=== PATIENT | female | born 1975 | race African-American/Black ===

== ENCOUNTER 2018-02-12 13:31 | Outpatient (CLI) | payer OTHER | END 2018-02-12 13:32 | disposition home or self-care (01) | LOC: BICMAMMO 13:31 | PROVIDERS: ATTEND Physician Assistant | DX: N63.10 Unspecified lump in the right breast, unspecified quadrant (principal) | CPT/HCPCS: 77066; G0279 ==

== ENCOUNTER 2018-08-26 13:35 | Outpatient (CLI) | payer OTHER ==
--- NOTE | 2018-08-26 16:22 | ULT ---
PELVIC ULTRASOUND: 08/26/18 HISTORY: Metromenorrhagia. Pelvic pain. TECHNIQUE: Multiplanar roberts scale and color doppler images were obtained in a transabdominal and transvaginal pe lvic ultrasound. Spectral analysis of the doppler waveforms were performed. FINDINGS: The uterus is enlarged. There are multiple hypoechoic to isoechoic fibroids in the uterus measuring u p to 6.5 cm in size. There is an anechoic region in the mid portion of the uterus measuring 1.3 cm in size which likely represents a small cystic space within one of the fibroids. The endometrial stripe is normal in thickness measuring 4 mm. The right ovary could not be visualized. The left ovary is normal in size and appearance and demonstr ates normal internal flow. A small amount of free fluid is seen in the pelvis. IMPRESSION: Fibroid uterus. POS: [facility]
== END 2018-08-26 13:36 | disposition home or self-care (01) ==
LOC: BICULT 13:35
PROVIDERS: ATTEND Physician Assistant
DX: R10.30 Lower abdominal pain, unspecified (principal); D25.9 Leiomyoma of uterus, unspecified
CPT/HCPCS: 76856

== ENCOUNTER 2018-11-13 12:00 | Inpatient (IN) | payer OTHER ==
[2018-12-03 15:52] VITALS: BMI 43.6
--- NOTE | 2018-12-03 21:38 | HP ---
REASON FOR ADMISSION: Fibroids, dysmenorrhea, and menorrhagia. SCHEDULED PROCEDURES: Total laparoscopic hysterectomy with bilateral salpingectomy, possible bilateral oophorectomy, and possible cystoscopy. HISTORY OF PRESENT ILLNESS: The patient is a 43-year-old 3, para 3, who presents with fibroids, dysmenorrhea, and dysfunctional uterine bleeding. She has one fibroid that is up to 8 cm as well as an anterior lower uterine segment, one that is 3 cm. Endometrial biopsy was benign and Pap smear was benign. The patient desires definitive surgical management. She reports menses that lasts for 10 days and changing pads q.1 to 2 hours. BUSINESS PLANNING ANALYST HISTORY: As noted in the HPI. x3. PAST MEDICAL HISTORY: Significant for chronic hypertension. PAST SURGICAL HISTORY: C-sections and tubal ligation. ALLERGIES: NONE. MEDICATIONS: 1. Lisinopril-hydrochlorothiazide 20/12.5. 2. Meloxicam 15. 3. Norethindrone acetate 5 mg. SOCIAL HISTORY: Denies tobacco, alcohol, or IV drug abuse. FAMILY HISTORY: Noncontributory. REVIEW OF SYSTEMS: Noncontributory. PHYSICAL EXAMINATION: GENERAL: Obese, black female. VITAL SIGNS: 5 feet 4 inches, 262, BMI 45. Blood pressure 138/92, pulse 77, respirations 18. HEENT: Within normal limits. LUNGS: Clear to auscultation bilaterally. HEART: Regular rhythm. BREASTS: No masses bilaterally. ABDOMEN: Soft, nontender without rebound or guarding. She has a vertical midline skin incision from the umbilicus to the symphysis pubis. It is well-healed. GENITALIA: Vulva without lesions. Vagina without discharge. Cervix is nulliparous. Uterus is anteverted, irregular, approximately 12 week size. Adnexa, no masses bilaterally. EXTREMITIES: No clubbing, cyanosis, or edema. Pap was negative for HPV and no evidence of dysplasia. Endometrial biopsy was benign proliferative. Ultrasound revealed a uterus measuring 14 x 8 cm. Normal-appearing right and left adnexa. Fundal fibroid measuring 6.3 x 6.75 cm in greatest diameter. The posterior fibroid measuring 3.5 x 3.5 cm. IMPRESSION: Symptomatic fibroids with dysmenorrhea and menorrhagia, unresponsive to medical management. Desires definitive surgical management. PLAN: Discussed with the patient options. We will proceed with total laparoscopic hysterectomy with specimen retrieval with retrieval by an extracorporal morcellation with bilateral salpingectomy. We will perform oophorectomy if ovaries appear abnormal. May need to perform cystoscopy because of the patient's 3 previous C-sections. The patient understands the risks and benefits of procedure including bleeding, infection, injury to bowel, bladder, or ureter. We will administer appropriate antibiotic and DVT prophylaxis. Job ID: [id number]
[2018-12-04] MEDS ORDERED: Lidocaine 1% PF 5 ML VIAL ONE (10:17)
[2018-12-04] MEDS ORDERED: Ondansetron PF 4 MG/2 ML Vial ONE (10:17)
[2018-12-04] MEDS ORDERED: Rocuronium Bromide 10 MG/ML (10ML VIAL) ONE (10:17)
[2018-12-04] MEDS ORDERED: PROPOFOL 200 MG/20 ML VIAL ONE (10:17)
[2018-12-04] MEDS ORDERED: Glycopyrrolate 0.2 MG/ML 5 ML SYRINGE ONE (10:17)
[2018-12-04] MEDS ORDERED: Ketorolac Tromethamine 30 MG/ML VIAL ONE (10:17)
[2018-12-04] MEDS ORDERED: CeleCOXIB 100 MG CAP ONE (10:37)
[2018-12-04] MEDS ORDERED: Famotidine/PF 20 mg/2ml Vial ONE (10:37)
[2018-12-04] MEDS ORDERED: Gabapentin 300 MG CAP ONE (10:37)
[2018-12-04] MEDS ORDERED: Bupivacaine HCl 0.5%/Epinephrine 1:200,000/PF 30 ml Vial ONE (11:16)
[2018-12-04] MEDS ORDERED: Fentanyl 100 MCG/2 ML VIAL ONE ×2 (11:49→15:10)
[2018-12-04] MEDS ORDERED: Midazolam HCl 2 mg/2 ml Vial ONE (11:49)
[2018-12-04 14:18] LABS: Bilirubin Negative (Negative); Blood, Urine Large (Negative); Clarity TURBID (Clear); Glucose, Urine (Dipstick) Negative (Negative); Leukocyte Large (Negative); Nitrite Positive (Negative); Protein, Urine (Dipstick) 100 mg/dL (Neg-Trace); Specific Gravity, Urine 1.016 (1.002-1.036)
[2018-12-04 14:25] LABS: Bacteria/HPF Rare-Few HPF (None Seen); Hyaline Casts/LPF 7-10 HYALINE CAST LPF (0-3 Hyaline); Pathc Cast-AUWi Flag 1.49 (0-2.49); RBC/HPF GREATER THAN 50-TNTC HPF (0-3); Squamous Epithelial 0-3 HPF (0-3)
[2018-12-04] MEDS ORDERED: Morphine 4 MG/ML VIAL SLOW IVP PRN (14:54)
[2018-12-04] MEDS ORDERED: Promethazine HCl 25 MG/ML VIAL IM PRN (14:54)
[2018-12-04] MEDS ORDERED: Ondansetron PF 4 MG/2 ML Vial IVP PRN (14:54)
[2018-12-04] MEDS ORDERED: diphenhydrAMINE 25 MG CAP PO PRN (14:54)
[2018-12-04] MEDS ORDERED: Acetaminophen/Codeine 30-300mg Tablet PO PRN (14:54)
[2018-12-04] MEDS ORDERED: Bisacodyl 10 MG SUPP PR PRN (14:54)
[2018-12-04] MEDS ORDERED: Zolpidem Tartrate 5 MG TAB PO PRN (14:54)
[2018-12-04] MEDS ORDERED: Simethicone Chewable 80 MG TAB PO PRN (14:54)
[2018-12-04] MEDS ORDERED: Morphine 4 MG/ML VIAL ONE (15:26)
[2018-12-04] MEDS ORDERED: hydrALAZINE 20 MG/ML VIAL ONE (15:31)
[2018-12-04] MEDS ORDERED: Morphine 2 MG/ML SYRINGE ONE ×2 (15:42→16:15)
--- NOTE | 2018-12-04 17:00 | OP ---
DATE OF PROCEDURE: 12/04/2018 PREOPERATIVE DIAGNOSES: A 12-to 14-week size uterus with leiomyoma uteri, menorrhagia, and dysmenorrhea. POSTOPERATIVE DIAGNOSES: A 12-to 14-week size uterus with leiomyoma uteri, menorrhagia, and dysmenorrhea plus adhesions of anterior abdominal wall, omentum, and pelvis secondary to 3 previous sections. PROCEDURES PERFORMED: Total laparoscopic hysterectomy with bilateral salpingectomy, extracorporeal bag morcellation. ASSISTANTS: 1. Cheyanne Robertson MD. 2. Kalyani Vivar PA-C. ANESTHESIA: General endotracheal. MEDICATIONS: 2 g of Ancef preoperatively and redosed 6 hours later secondary to the patient's obesity. DRAINS: Palacios to gravity with cloudy urine noted at placement prior to the procedure, sent for UA with micro and culture. DVT prophylaxis, SCDs. OPERATIVE FINDINGS: 1. Approximately 14-week size uterus with multiple leiomyoma, one 3-cm anterior lower uterine segment and the second one was 7 to 8 cm of fundal left-sided. 2. Omental adhesions to the anterior abdominal wall from the level of the umbilicus down to the symphysis pubis, reduced. 3. Moderate adhesive disease at the level of the vesicouterine peritoneal fold, status post x3. 4. Hemostasis with nonbloody urine. COUNTS: Correct counts at the end of the procedure. DISPOSITION: To recovery Room in good condition. DESCRIPTION OF PROCEDURE: After obtaining appropriate informed consent, the patient was taken to the operating room, where general endotracheal anesthesia was achieved without difficulty. The patient was prepped and draped in the dorsal lithotomy position in Travis stirrups. Sliding speculum was placed in the vagina. Cervix was identified, grasped with a single-tooth tenaculum. Uterus sounded to 11 cm. NATHANIEL manipulator with 8 cm obturator and 3.5 cm vaginal excavator operator was placed without difficulty. Palacios catheter was placed. Cloudy urine was noted. This was drawn off sterilely and sent for culture and urinalysis with micro. Manager Commercial changed his gloves, turned attention to abdominal portion of procedure. 5 mL of Marcaine injected approximately 4 cm above the umbilicus secondary to findings at the bimanual exam after induction of anesthesia. A 12-mm skin incision made and Veress needle placed in abdominal cavity, insufflation was carried out with carbon dioxide for a maximum volume 3 L, pressure of 15 mmHg. A 12-mm trocar was introduced and findings as noted in the operative findings were noted. The omental adhesions were noted to come up to the level of the umbilicus and were not impinged on by the trocar. The right and left lateral da Sidra trocars were placed lateral to epigastric vessels and anesthesiology physician assistant port in the left upper quadrant. Monopolar lakeisha were used to take down the omentum anteriorly off the anterior abdominal wall with good hemostasis noted. After this was done, the skin incision at the trocar above the umbilicus was enlarged approximately 3 cm and cut down to the level of the fascia. Small Nico O was placed inside of the GelPOINT, GelPort was placed over it. [employer] retrieval bag was placed in the abdomen in the usual manner. The patient was placed in steep Trendelenburg position and da Sidra robot docked with monopolar scissors in the right hand and bipolar fenestrated forceps in the left. Large fundal fibroid was mobilized on the patient's left, status post midsegment salpingectomy was noted. The distal portion of the fallopian tube was coagulated across the mesosalpinx, excised and sent for pathologic analysis. The utero-ovarian ligament was coagulated and transected, although fibroids extending into the broad ligament distorted this somewhat on this side. Good hemostasis was noted. This was carried down to the level of the round, which was coagulated and transected and then brought down to the level just above the internal cervical os. Distortion of the left parametria was noted secondary to the patient's fibroid as well as edema. It was opened up, ureter identified, noted to be well lateral to the vessels. The level of the internal cervical os as well as the apex of the vagina was easily identified. The vesicouterine peritoneum was incised sharply and dissected off the lower uterine segment, cervix and upper vagina on the patient's left and this was carried over to the right. The bladder was easily identified throughout. No evidence of injury with dissection of the bladder off the cervix and upper vagina was noted. Skeletonization of the uterine vessels carried out on the left and these were coagulated. Attention was turned to the right, where the identical procedure was carried out. Because of the fibroid in the mid lower uterine segment anteriorly, distortion of the round ligament and broad ligament were noted on this side as well. The distal portion of fallopian tube was excised and removed. Then, the utero-ovarian, the broad, the round, and down to the level of the internal cervical os. Final dissection of the bladder off the cervix and upper vagina was carried out on the patient's right. Blood vessels on the patient's right were much more tortuous than on the left and these were coagulated and transected and the ureter noted to be lateral to the level of coagulation and transection. The vagina was entered anteriorly at 12 o'clock and sent from 12 o'clock to 3 o'clock and from 12 o'clock to 9 o'clock. Posteriorly, the uterus was lifted up with some difficulty because a large fibroid entered at 6 o'clock and sent from 6 o'clock to 9 o'clock and 6 o'clock to 3 o'clock. Specimen was amputated and then the retention balloon on the obturator for the NATHANIEL was taken down and the specimen was pulled off the NATHANIEL. The vagina had the obturator balloon from the cuff portion of the NATHANIEL placed into it to maintain pneumoperitoneum. Suction irrigation carried out. All pedicles rendered hemostatic and the vagina closed using a running continuous 0 PDS suture lock running from right to left and then back to right. Again, ureters were noted to be well lateral to the operative field and the bladder was noted to be away from the closure. Suction irrigation was carried out and good hemostasis noted. Tisseel was applied across all raw surfaces that had been coagulated and transected. The uterus was then pulled back into the pelvis and the retrieval bag pulled out off the pelvis. Stay sutures on the [employer] retrieval bag were cut and removed. The specimen was pulled into the bag and then the edges of the bag pulled out through the GelPOINT trocar. Undocking the da Sidra, removing the da Sidra instruments and then removing the GelPOINT exteriorizing the bag through many Nico O. For the next 45 to 50 minutes, morcellation extracorporeally in the retrieval bag applied. Medical retrieval bag was carried out using an 11 blade and Ladonna thyroid clamps, taking care to avoid trauma to the underlying viscera. Once the entire specimen was removed, the retrieval bag was removed. The admitting Nico O was removed. Inspection of the abdomen through the mini-Nico O holding the fascia, which was approximately 2.5 to 3 cm revealed no evidence of active bleeding and good hemostasis. The fascia was identified and closed using running continuous suture of 0 Vicryl. At this level, the skin reapproximated x4 using 4-0 Monocryl and Dermabond. Vagina was inspected and noted to be dry. Palacios catheter was noted to have urine that was consistent with that, which was present at the beginning of the case. The patient was awakened and extubated, taken to the Recovery Room in good condition. Job ID: [id number]
[2018-12-04] MEDS ORDERED: cloNIDine 0.1 MG TAB PO PRN (17:29)
[2018-12-04] MEDS: Sodium Chloride 0.9% 1,000 ML IV SCH (17:58)
[2018-12-04] MEDS: Acetaminophen 1,000 MG in Premix Bag 1 BAG IVPB SCH (17:58)
[2018-12-04] MEDS: Ketorolac Tromethamine 30 MG/ML VIAL IVP SCH (17:59)
[2018-12-04] MEDS ORDERED: CEFAZOLIN 2 GM in Premix Bag 1 BAG IVPB SCH (20:00)
[2018-12-04] MEDS: CEFAZOLIN 2 GM in Premix Bag 1 BAG IVPB SCH ×2 (20:43→21:00)
[2018-12-04] MEDS ORDERED: Gabapentin 300 MG CAP PO SCH (21:00)
[2018-12-05] MEDS: Ketorolac Tromethamine 30 MG/ML VIAL IVP SCH ×2 (00:50→06:21)
[2018-12-05] MEDS: Acetaminophen 1,000 MG in Premix Bag 1 BAG IVPB SCH ×2 (00:55→06:25)
[2018-12-05] MEDS: Sodium Chloride 0.9% 1,000 ML IV SCH ×2 (03:34→09:31)
[2018-12-05 08:07] LABS: Hemoglobin 11.5 g/dL (12.0-16.0); Mean Corpuscular HGB CONC 32.3 g/dL (32.0-36.0); Mean Corpuscular Hemoglobin 28.6 pg (27.0-31.0); Mean Corpuscular Volume 88.4 fL (78.0-98.0); Mean Platelet Volume 7.7 fL (7.4-10.4); Platelet Count 217 thou/uL (130-400); RBC Distribution Width 12.3 % (11.5-14.5); Red Blood Cell (RBC) Count 4.03 mill/uL (4.20-5.40); White Blood Cell (WBC) Count 7.7 thou/uL (4.8-10.8)
--- NOTE | 2018-12-05 08:41 | DIS ---
DATE OF ADMISSION: 12/04/2018 DATE OF DISCHARGE: 12/05/2018 SUMMARY OF HOSPITAL COURSE: The patient was admitted on 12/04 at approximately noon and underwent a total laparoscopic hysterectomy with bilateral salpingectomy for large fibroids, dysmenorrhea, menorrhagia, and pelvic pain. At placement of Palacios catheter prior to surgery, the patient was noted to have a pre-existing cloudy urine. Urinalysis was consistent with UTI. Urine culture initially was less than 10,000 colony-forming units, which was found to be unusual. However, the patient was noted to have a previous urine culture in July, it was positive for Proteus mirabilis and is suspected to be the etiology of the patient's current UTI. This was sensitive to all cephalosporins. The patient underwent the hysterectomy with an estimated blood loss of 150 mL. Postoperative hematocrit went from 39% to 35%. The patient underwent the total laparoscopic hysterectomy with extracorporeal morcellation with applied medical retrieval bag. Postoperatively, she had an unremarkable postoperative course with good urine output and good p.o. intake. PHYSICAL EXAMINATION: VITAL SIGNS: This morning are temperature of 97.6, pulse 72, respirations 20, and blood pressure 141/65. HEENT: Within normal limits. LUNGS: Clear to auscultation bilaterally. HEART: Regular rate and rhythm. ABDOMEN: Soft, nontender, and nondistended. Good bowel sounds. Incisions intact and dry. Perineum intact and dry. EXTREMITIES: Without clubbing, cyanosis, or edema. LABORATORY DATA: As noted above. PLAN: The patient will be discharged home after noon today when voiding. DISCHARGE MEDICATIONS: Include [place] and ibuprofen, which has already been set out. We will also send out Keflex 500 p.o. t.i.d. x5 days. FOLLOWUP: The patient will follow up with me at [facility] in 2 to 3 weeks. Pathology will be followed up at that time. Job ID: [id number]
[2018-12-05] MEDS ORDERED: Lisinopril/Hydrochlorothiazide 20 mg/12.5 mg Tablet PO SCH (09:00)
[2018-12-05] MEDS: Acetaminophen/Codeine 30-300mg Tablet PO PRN ×2 (09:29→13:37)
[2018-12-05 11:36] VITALS: TEMP 99.6
[2018-12-05 14:08] VITALS: BP 165/95
[2018-12-09] MEDS ORDERED: Ibuprofen 800 MG TAB PO SCH (22:00)
== END 2018-12-05 14:09 | disposition home or self-care (01) | DRG 742 ==
LOC: SURG A 12-04 09:46 → 3SE 12-04 16:16
PROVIDERS: ADMIT Obstetrics & Gynecology; ATTEND Obstetrics & Gynecology
PROC: 0UT9FZZ Resection of Uterus, Via Natural or Artificial Opening With Percutaneous Endoscopic Assistance (ICD-10-PCS; principal; 2018-12-04)
PROC: 0UT7FZZ Resection of Bilateral Fallopian Tubes, Via Natural or Artificial Opening With Percutaneous Endoscopic Assistance (ICD-10-PCS; 2018-12-04)
DX: D25.1 Intramural leiomyoma of uterus (principal); Z68.41 Body mass index [BMI] 40.0-44.9, adult; N39.0 Urinary tract infection, site not specified; N93.8 Other specified abnormal uterine and vaginal bleeding; E66.9 Obesity, unspecified; B96.4 Proteus (mirabilis) (morganii) as the cause of diseases classified elsewhere
CPT/HCPCS: 36415; 80048; 81001; 85027; 86850; 86900; 86901; 87086; 88307; 93005; 93010; J0131; J0360; J0670; J1885; J2250; J2270; J3010; Q9968; S0028

== ENCOUNTER 2018-12-03 00:17 | Outpatient (CLI) | payer OTHER ==
[2018-12-03 16:38] LABS: Hemoglobin 12.4 g/dL (12.0-16.0); Mean Corpuscular HGB CONC 31.9 g/dL (32.0-36.0); Mean Corpuscular Hemoglobin 28.2 pg (27.0-31.0); Mean Corpuscular Volume 88.4 fL (78.0-98.0); Mean Platelet Volume 7.7 fL (7.4-10.4); Platelet Count 271 thou/uL (130-400); RBC Distribution Width 12.7 % (11.5-14.5); Red Blood Cell (RBC) Count 4.42 mill/uL (4.20-5.40); White Blood Cell (WBC) Count 6.9 thou/uL (4.8-10.8)
[2018-12-03 16:54] LABS: Anion Gap 8 mmol/L (10-20); BUN (Urea Nitrogen) 10 mg/dL (7.0-18.7); Calc. Creatinine Clearance 0 mL/min (70-130); Calcium 8.9 mg/dL (7.8-10.44); Carbon Dioxide 27 mmol/L (22-29); Chloride 106 mmol/L (98-107); Estimated GFR-MDRD Greater than 90; Glucose 77 mg/dL (70-105); Potassium 3.8 mmol/L (3.5-5.1); Sodium 137 mmol/L (136-145)
--- NOTE | 2018-12-05 16:37 | EKG ---
Test Reason : Blood Pressure : / mmHG Vent. Rate : 068 BPM Atrial Rate : 068 BPM P-R Int : 160 ms QRS Dur : 082 ms QT Int : 384 ms P-R-T Axes : 058 049 024 degrees QTc Int : 408 ms Normal sinus rhythm with sinus arrhythmia Cannot rule out Anterior infarct , age undetermined Abnormal ECG No previous ECGs available Confirmed by DR. Ricci TOM ([id number]) on 12/05/2018 4:36:58 PM Referred By: LEONIE Confirmed By:DR. Ricci TOM
== END 2018-12-03 00:18 | disposition home or self-care (01) ==
LOC: LABBT 00:17
PROVIDERS: ATTEND Obstetrics & Gynecology
DX: Z01.818 Encounter for other preprocedural examination (principal); N93.8 Other specified abnormal uterine and vaginal bleeding; D25.9 Leiomyoma of uterus, unspecified
CPT/HCPCS: 80048; 85027; 86850; 86900; 86901; 93005; 93010

== ENCOUNTER 2019-06-23 16:12 | Emergency (ER) | payer OTHER ==
[~2019-06-23 16:12] MED LIST: ISOVUE-370 76%-LOCM 1 ML ONE
[2019-06-23 17:22] LABS: #Basophils 0.1 thou/uL (0.0-0.2); #Eosinphils 0.1 thou/uL (0.0-0.7); #Lymphocytes 1.6 thou/uL (1.20-3.40); #Monocytes 0.5 thou/uL (0.11-0.59); #Neutrophils 2.6 thou/uL (1.40-6.50); %Basophils 1.3 % (0.0-1.0); %Eosinophils 2.2 % (0.0-10.0); %Lymphocytes 33.7 % (21.0-51.0); %Monocytes 9.3 % (0.0-10.0); %Neutrophils 53.6 % (42.0-75.0); Hemoglobin 14.2 g/dL (12.0-16.0); Mean Corpuscular HGB CONC 32.5 g/dL (32.0-36.0); Mean Corpuscular Hemoglobin 29.5 pg (27.0-31.0); Mean Corpuscular Volume 90.7 fL (78.0-98.0); Mean Platelet Volume 7.3 fL (7.4-10.4); Platelet Count 238 thou/uL (130-400); RBC Distribution Width 12.1 % (11.5-14.5); White Blood Cell (WBC) Count 4.8 thou/uL (4.8-10.8)
[2019-06-23 17:50] LABS: ALT (SGPT) 11 U/L (8-55); AST (SGOT) 13 U/L (5-34); Alkaline Phosphatase 56 U/L (40-110); Anion Gap 11 mmol/L (10-20); BUN (Urea Nitrogen) 8 mg/dL (7.0-18.7); Bilirubin, Total 0.5 mg/dL (0.2-1.2); Calc. Creatinine Clearance 0 mL/min (70-130); Calcium 9.2 mg/dL (7.8-10.44); Carbon Dioxide 26 mmol/L (22-29); Chloride 106 mmol/L (98-107); Estimated GFR-MDRD 85; Globulin 2.9 g/dL (2.4-3.5); Glucose 91 mg/dL (70-105); Lipase 9 U/L (8-78); Protein, Total 6.9 g/dL (6.0-8.3); Sodium 139 mmol/L (136-145)
[2019-06-23] MEDS ORDERED: Morphine 4 MG/ML VIAL ONE (18:14)
[2019-06-23] MEDS ORDERED: Ondansetron PF 4 MG/2 ML Vial ONE (18:14)
--- NOTE | 2019-06-23 18:55 | CT ---
CT Abdomen Pelvis W Con History: Abdominal pain Comparison: None. Findings: Lung bases are clear. No pericardial effusion. Large staghorn calculus throughout the left renal collecting system casting the renal pelvis and teodoro deana. Asymmetric decreased enhancement left kidney relative to the right kidney. The pancreas, liver, gallbladder are unremarkable. Small fat-containing umbilical hernia. Phleboliths in the pelvis. High-grade sclerosis of the sacrum and ilium. Mild facet arthrosis lower lumbar spine. No dilated loops of large or small bowel. Impression: 1. Large staghorn calculus of the left kidney with casting throughout the left renal pelvis and calyc es with slight decrease asymmetric enhancement left kidney relative to the right and low-grade perinephric stranding. Urologic consultation advised. 2. Small infraumbilical fat-containing hernia. 3. Severe sclerosis of the ilium bilaterally at the SI joints with low-grade arthrosis of the sacrum without significant reverse suggesting osteitis condensans ilii.
[2019-06-23 19:03] LABS: Bilirubin Negative (Negative); Blood, Urine 3+ (Negative); Calcium Oxalate Crystals Rare HPF (None Seen); Clarity Turbid (Clear); Glucose, Urine (Dipstick) Normal (Negative); Leukocyte 500 Leu/uL (Negative); Nitrite Negative (Negative); Protein, Urine (Dipstick) 70 mg/dL (Neg-Trace); RBC/HPF Greater than 50 HPF (0-3); Urobilinogen Normal mg/dL (Less than 2); WBC/HPF Greater than 50 HPF (0-3)
[2019-06-23 19:15] LABS: Bacteria/HPF Rare-Few HPF (None Seen)
[2019-06-23] MEDS ORDERED: cefTRIAXone\\ROCEPHIN 2 GM VIAL ONE (19:42)
== END 2019-06-23 20:30 | disposition home or self-care (01) ==
LOC: ERS 16:12
DX: N20.0 Calculus of kidney (principal); I10 Essential (primary) hypertension; F32.9 Major depressive disorder, single episode, unspecified; Z79.899 Other long term (current) drug therapy
CPT/HCPCS: 36415; 74177; 80053; 81003; 81015; 83690; 85025; 96361; 96365; 96375; J0696; J2270; J2405; Q9966

== ENCOUNTER → 2019-06-30 | Day surgery (SDC) | payer OTHER ==
[2019-06-29 13:04] VITALS: BMI 42.9
[~2019-06-30] MED LIST changes: +Fentanyl 100 MCG/2 ML VIAL ONE; +HYDROcodone/Acetaminophen 5/325 mg Tablet ONE; -ISOVUE-370 76%-LOCM 1 ML ONE; +Iothalamate Meglumine 60% 50 ML VIAL FS ONE; +Ketorolac Tromethamine 30 MG/ML VIAL ONE; +Levofloxacin 500 mg/D5W 100 ml Premix Bag ONE; +Midazolam HCl 2 mg/2 ml Vial ONE; +Oxybutynin 5 MG TAB ONE; +Phenazopyridine HCl 97.5 MG TABLET ONE
--- NOTE | 2019-06-30 12:05 | RAD ---
INTRAOPERATIVE FLUOROSCOPY FOR RETROGRADE IVP: HISTORY: Ureteroscopy. Left renal calculi. FINDINGS: A single fluoroscopic view demonstrates density in the left renal pelvis. Double pigtail left ureter al stent is noted, appropriately positioned. IMPRESSION: Intraoperative fluoroscopy as above. POS: [facility]
--- NOTE | 2019-06-30 12:14 | OP ---
DATE OF PROCEDURE: 06/30/2019 PREOPERATIVE DIAGNOSIS: Large left renal stone. POSTOPERATIVE DIAGNOSIS: Large left renal stone. PROCEDURES PERFORMED: Left ureteroscopy with laser lithotripsy, basket extraction, and 6 x 24 double-J ureteral stent placement. ANESTHESIA: General. COMPLICATIONS: None. SPECIMEN: None. DESCRIPTION OF PROCEDURE: After informed consent, the patient was taken to the operating room, transferred to the table on her own power. Anesthesia was established. A time-out was performed showing the correct patient, site, and procedure. She was prepped and draped in the lithotomy position. The rigid cystoscope was advanced through the urethra into the bladder. The bladder was systematically examined, noting no mucosal abnormalities. The left ureteral orifice was cannulated with a wire, which negotiated up to the level of the renal pelvis. Under fluoroscopy, the renal stone was apparent. I then passed a 36 cm 13/15 navigator access sheath over the wire into the distal ureter and the retrograde pyelogram was performed through this, noting good filling of the ureter and opacifying the renal pelvis. The access sheath was then passed itself to the level of the renal pelvis. The flexible ureteroscope was advanced through this into the renal pelvis, where the tip of the stone began at the UPJ. I used a 200 micron ball-tipped laser fiber to completely dust the entirety of the stone. I took care to clear all extensions of the stone and at the end of the case, I carefully examined the each calyx under fluoroscopy, noting no clinically significant stone fragments. I then procured a basket and attempted to retrieve stone fragments for analysis; however, there were no stone fragments large enough to remove. A completion retrograde was performed and the scope and access sheath withdrawn leaving the wire in place. A 6 x 24 double-J ureteral stent was placed over the wire with the coil in the kidney and coil in the bladder under fluoroscopic guidance. Completion film was taken. She was then awoken from anesthesia, transferred back to her hospital bed and taken to PACU in stable condition, where she will be discharged to home upon recovery. Job ID: [id number]
== END ==
LOC: SDC 08:55
PROVIDERS: ATTEND Urology
PROC: 0T778DZ Dilation of Left Ureter with Intraluminal Device, Via Natural or Artificial Opening Endoscopic (ICD-10-PCS; principal; 2019-06-30)
PROC: 0TF48ZZ Fragmentation in Left Kidney Pelvis, Via Natural or Artificial Opening Endoscopic (ICD-10-PCS; principal; 2019-06-30)
DX: N20.0 Calculus of kidney (principal); I10 Essential (primary) hypertension; Z79.1 Long term (current) use of non-steroidal anti-inflammatories (NSAID); Z79.2 Long term (current) use of antibiotics; Z79.899 Other long term (current) drug therapy; Z91.040 Latex allergy status
CPT/HCPCS: 74420; J1885; J1956; J2250; J3010

== ENCOUNTER 2019-07-13 08:50 | Outpatient (CLI) | payer OTHER ==
--- NOTE | 2019-07-13 10:25 | RAD ---
SUPINE ABDOMEN: INDICATIONS: Kidney stone. FINDINGS: There is a double-pigtailed left ureteral stent. No urinary tract calcification identified. Phlebolit h calcifications are seen in the pelvis. Bowel gas pattern is unremarkable. Colon gas and stool obscu re both renal outlines and small calcifications may be obscured. POS: [facility]
== END 2019-07-13 08:51 | disposition home or self-care (01) ==
LOC: RAD 08:50
PROVIDERS: ATTEND Urology
DX: N20.0 Calculus of kidney (principal)
CPT/HCPCS: 74018

== ENCOUNTER 2020-04-18 15:06 | Emergency (ER) | payer OTHER ==
[2020-04-18] MEDS ORDERED: Ketorolac Tromethamine 30 MG/ML VIAL ONE (16:50)
== END 2020-04-18 16:50 | disposition home or self-care (01) ==
LOC: ERS 15:06
DX: M54.6 Pain in thoracic spine (principal); M25.512 Pain in left shoulder; I10 Essential (primary) hypertension; Z79.899 Other long term (current) drug therapy
CPT/HCPCS: 96372; 99283; J1885

== ENCOUNTER 2023-10-05 06:07 | Emergency (ER) | payer BC ==
[2023-10-05] MEDS ORDERED: Ketorolac Tromethamine 30 MG (1 mL) VIAL ONE (07:34)
== END 2023-10-05 07:55 | disposition home or self-care (01) ==
LOC: ERS 06:07
DX: M25.512 Pain in left shoulder (principal); I10 Essential (primary) hypertension; Z79.899 Other long term (current) drug therapy
CPT/HCPCS: 96372; J1885